=== PATIENT | male | born 1940 | race Two or more races ===

== ENCOUNTER 2019-08-19 21:04 | Emergency (ER) | payer OTHER ==
[~2019-08-19] VITALS: Ht 160 cm; Wt 95.3 kg
== END 2019-08-19 22:58 | disposition home or self-care (01) ==
LOC: ER 21:04
DX: S42.221A 2-part displaced fracture of surgical neck of right humerus, initial encounter for closed fracture (principal); W18.09XA Striking against other object with subsequent fall, initial encounter; Y93.89 Activity, other specified; Y92.89 Other specified places as the place of occurrence of the external cause; Y99.8 Other external cause status

== ENCOUNTER 2019-09-11 10:33 | Inpatient (IN) | payer OTHER ==
[~2019-09-11] VITALS: Ht 167.6 cm; Wt 92.0 kg
[2019-09-11] MEDS ORDERED: ADALAT CC60 MG (10:53)
[2019-09-11] MEDS ORDERED: NITROGLYCERIN0.4 MG (10:53)
[2019-09-11] MEDS ORDERED: CARVEDILOL6.25 M1 (10:53)
[2019-09-11] MEDS ORDERED: LASIX20 MG (10:54)
[2019-09-11] MEDS ORDERED: LEVO-T50 MCG (10:54)
[2019-09-11] MEDS ORDERED: PLAVIX75 MG (10:54)
[2019-09-11] MEDS ORDERED: ISOSORBIDE DINI30 MG (10:55)
[2019-09-11] MEDS ORDERED: TAMS0.4C (10:55)
[2019-09-11] MEDS ORDERED: GLIPIZIDE XL5 MG (10:55)
[2019-09-11] MEDS ORDERED: COZAAR100 MG (10:55)
[2019-09-11] MEDS ORDERED: RENAL VITAMIN0.8 MG (10:56)
[2019-09-15] MEDS ORDERED: TAMSULOSIN HCL0.4 MG PO (17:30)
[2019-09-15] MEDS ORDERED: CARVEDILOL6.25 MG PO (17:31)
[2019-09-15] MEDS ORDERED: CLOPIDOGREL BIS75 MG PO (17:31)
[2019-09-15] MEDS ORDERED: ISOSORBIDE DINI30 MG PO (17:32)
[2019-09-15] MEDS ORDERED: FUROSEMIDE20 MG PO (17:32)
[2019-09-15] MEDS ORDERED: PROCARDIA XL90 MG PO (17:32)
[2019-09-15] MEDS ORDERED: LEVOTHYROXINE50 MCG PO (17:33)
[2019-09-15] MEDS ORDERED: DOXAZOSIN MESYLA4 MG PO (17:34)
== END 2019-09-15 19:14 | disposition home or self-care (01) | DRG 69 ==
LOC: ER 10:33 → EDBD 10:45 → ER 10:45 → SURH 20:13 → MEDI 09-14 13:20
PROVIDERS: ADMIT Internal Medicine
PROC: BW28ZZZ Computerized Tomography (CT Scan) of Head (ICD-10-PCS; principal; 2019-09-11)
PROC: B345ZZZ Ultrasonography of Bilateral Common Carotid Arteries (ICD-10-PCS; 2019-09-11)
PROC: B348ZZZ Ultrasonography of Bilateral Internal Carotid Arteries (ICD-10-PCS; 2019-09-11)
PROC: B246ZZZ Ultrasonography of Right and Left Heart (ICD-10-PCS; 2019-09-11)
PROC: B030ZZZ Magnetic Resonance Imaging (MRI) of Brain (ICD-10-PCS; 2019-09-11)
PROC: 30233N1 Transfusion of Nonautologous Red Blood Cells into Peripheral Vein, Percutaneous Approach (ICD-10-PCS; 2019-09-14)
DX: G45.8 Other transient cerebral ischemic attacks and related syndromes (principal); N17.8 Other acute kidney failure; I13.10 Hypertensive heart and chronic kidney disease without heart failure, with stage 1 through stage 4 chronic kidney disease, or unspecified chronic kidney disease; N18.9 Chronic kidney disease, unspecified; I25.10 Atherosclerotic heart disease of native coronary artery without angina pectoris; D63.1 Anemia in chronic kidney disease
CPT/HCPCS: 70544